=== PATIENT | female | born 1970 | race Caucasian/White ===

== ENCOUNTER 2021-10-14 18:05 | Emergency (ER) | payer BC, SELFPAY ==
[2021-10-14 18:27] VITALS: BP 113/60; PULSE 62; TEMP 36.8; O2SAT 99; BMI 20.2
--- NOTE | 2021-10-14 18:47 | ED_ITS ---
HPI - General Adult General Time Seen by Provider: 19:08 Date Seen: 10/14/21 Chief complaint: Headache/Migraine Stated complaint: Med change headache confusion Time Seen by Provider: 10/14/21 18:44 History of Present Illness HPI narrative: Mary Anne is a 51 year old female past medical history of PSVT, migraine, anxiety, fibromyalgia who presents to the ED with a headache. Patient recently started on new Toprol XL on 10/11. Today she started having a headache, ringing in her ears and trouble speaking, this occurred this afternoon and has resolved, she still has a frontal headache, 5/10. She does have a history of chronic headaches trau mickey, recently she got a new prescription for brand Toprol XL 100 mg from [facility] on 10/11, she started had a bad odor, [facility] her dad picked that up for her she smell to it and still had a bad odor, she ended up taking 3 doses since then. Patient has been on this medication for a long time. He had a negative antigen test for COVID this morning. She denies any dizziness, lightheadedness, chest pain or shortness of breath, her PSVT has been controlled. She has not been sick, denies any fevers chills sinus congestion. Denies any nausea vomiting abdominal pain, she has not had any urinary or bowel problems,. No other concerns at this time. Related Data Allergies Allergy/AdvReac Type Severity Reaction Status Date / Time acetaminophen [From Vicodin] Allergy Verified 10/14/21 18:26 azithromycin [From Zithromax] Allergy Verified 10/14/21 18:26 codeine Allergy Verified 10/14/21 18:26 hydrocodone [From Vicodin] Allergy Verified 10/14/21 18:26 Iodinated Contrast Media Allergy Verified 10/14/21 18:24 levofloxacin Allergy Verified 10/14/21 18:26 morphine Allergy Verified 10/14/21 18:26 Sulfa (Sulfonamide Allergy Verified 10/14/21 18:24 Antibiotics) doxicycline Allergy Uncoded 10/14/21 18:26 eyrthromycin Allergy Uncoded 10/14/21 18:26 Review of Systems Status of ROS: Reports: 10 or more systems reviewed and unremarkable except as noted in History and below PFSH PFSH Social History Smoking Status: Former smoker Do you use any of these nicotine containing products: None Second hand tobacco smoke exposure: No How often do you have a drink containing alcohol: never How often do you have six or more drinks on one occasion: Never AUDIT-C Alcohol total score: 0 Non-prescribed substance use: denies use Exam Narrative: Exam Narrative: General: No obvious distress sitting comfortably HEENT: Tympanic membranes within normal limits bilaterally oropharynx is clear and moist, nontender palpation the sinuses frontal and maxillary, pupils equal round reactive to light extraocular muscles intact Mouth: Oropharynx is clear, symmetrical smile Neck: Supple full range of motion Lungs: Clear to auscultation bilaterally Heart: S1-S2, normal sinus rhythm Abdomen: Soft nontender bowel sounds present: Muscle skeletal: +5 strength in upper lower extremities Neuro: NIH stroke scale 0, gait within normal limits, no focal deficits on exam Psych: Mood and affect normal Const: Vital Signs, click to edit/add: Vital Signs - 24 hr 10/14/21 18:27 Temperature 98.3 F Pulse Rate [Pulse Oximeter] 62 Blood Pressure [Le ft Upper Arm] 113/60 Pulse Oximetry 99 Course Course Hospital Course: 6:00 PM: AIDET performed, vitals are stable, patient still has a headache similarto previous, offered IV fluids and 15 mg IV Toradol, restart to [facility], there has been no recalls on the medications, plan to switch to a generic form of metoprolol succinate 100 mg over the next 7 days, will also obtain a SARs priority test see if that is contributing to her smell and symptoms. Vital Signs Vital signs: Initial Vital Signs Temperature 98.3 F 10/14/21 18:27 Temperature Source Temporal Artery Scan 10/14/21 18:27 Pulse Rate 62 10/14/21 18:27 Pulse Rhythm 10/14/21 18:27 Blood Pressure 113/60 10/14/21 18:27 Blood Pressure Mean 77 10/14/21 18:27 Pulse Oximetry 99 10/14/21 18:27 Oxygen Delivery Method 10/14/21 18:27 Vital Signs Temperature 98.3 F 10/14/21 18:27 Pulse Rate 62 10/14/21 18:27 Blood Pressure 113/60 10/14/21 18:27 Pulse Oximetry 99 10/14/21 18:27 Temperature 98.3 F 10/14/21 18:27 Pulse Rate 62 10/14/21 18:27 Blood Pressure 113/60 10/14/21 18:27 Pulse Oximetry 99 10/14/21 18:27 Medical Decision Making Lab Data Labs: Lab Results 10/14/21 Range/Units 19:29 SARS-CoV-2 (PCR) Negative SARS-CoV-2 (Negative) Discharge Plan Discharge Clinical Impression: Headache Patient Disposition: Home, Self-Care Condition: Improved Instructions: Acute Headache (ED) Additional Instructions: To start the generic form of Metoprolol succinate 100 mg daily for 7 days, to reach out to primary care provider to discuss any changes if needed to your medications. Return if worsening symptoms. Activity Level: Activity as Tolerated Stand Alone Forms: [employer] Info Instructions
[2021-10-14] MEDS: METOPROLOL SUCCINATE (XL) 100 MG TAB PO (20:09)
[2021-10-14 21:43] LABS: SARS PCR* Negative SARS-CoV-2 (Negative)
== END 2021-10-14 20:11 | disposition home or self-care (01) ==
LOC: ED 19:44
PROVIDERS: Emergency Provider Student in an Organized Health Care Education/Training Program; PCP Physician Assistant
DX: R51.9 Headache, unspecified (principal)
CPT/HCPCS: 87635; 99284; A9270

== ENCOUNTER 2022-03-02 13:45 | Outpatient (RCR) | payer BC, SELFPAY | END 2022-06-09 14:36 | disposition home or self-care (01) | PROVIDERS: PCP Physician Assistant; Visit Provider Physician Assistant | DX: M25.512 Pain in left shoulder (principal); Z51.89 Encounter for other specified aftercare | CPT/HCPCS: 97110; 97112; 97162 ==